=== PATIENT | female | born 1990 | race Caucasian/White ===

== ENCOUNTER 2022-04-01 09:16 | Outpatient (CLI) | payer OTHER | END 2022-04-01 10:06 | disposition home or self-care (01) | LOC: NST 09:16 | PROVIDERS: ATTEND Obstetrics & Gynecology Gynecology | DX: Z34.83 Encounter for supervision of other normal pregnancy, third trimester (principal) ==

== ENCOUNTER 2022-04-05 15:05 | Outpatient (CLI) | payer OTHER | END 2022-04-05 16:17 | disposition home or self-care (01) | LOC: NST 15:05 | PROVIDERS: ATTEND Obstetrics & Gynecology Gynecology | DX: Z34.83 Encounter for supervision of other normal pregnancy, third trimester (principal) ==